=== PATIENT | female | born 1990 | race African-American/Black ===

== ENCOUNTER 2020-11-20 14:18 | Emergency (ER) | payer OTHER, SELFPAY ==
--- NOTE | ~2020-11-20 | XR_ITS ---
EXAMINATION: XR chest 2V EXAM DATE: 11/20/2020 15:12 INDICATION: Cough, chest congestion. History of asthma. TECHNIQUE: Frontal and lateral projections of the chest obtained and reviewed. There is no prior alisa dy for comparison. FINDINGS: There is moderate hyperinflation. The lungs are clear. There are no pleural effusions. Th e cardiomediastinal silhouette is within normal limits. There is no pneumothorax suspected. The bon es and soft tissues are unremarkable. IMPRESSION: 1. No acute cardiopulmonary findings. 2. Hyperinflation. Reviewed, dictated and finalized at location A.
[2020-11-20 14:40] VITALS: BP 130/90; PULSE 94; RESP 20; TEMP 36.9; O2SAT 98
--- NOTE | 2020-11-20 15:07 | ED.GENADULT ---
HPI - General Adult General Chief complaint: Upper Respiratory Infection Stated complaint: coughing stuffy nose Time Seen by Provider: 11/20/20 15:07 Source: patient and RN notes reviewed Mode of arrival: ambulatory Limitations: no limitations History of Present Illness HPI narrative: 30-year-old -French female presents with complaints of upper respiratory infection symptoms, cough, intermittent dyspnea and wheezing for the past 4 days. Tyann reports increasing symptoms over the past 24 hours. Albuterol inhaler without relief. History of Asthma. Intermittent productive cough with chest congestion. Rhinorrhea and nasal congestion. Exacerbating factors consist of smoke exposure. No high fever or sweats. No nausea, vomiting, and abdominal pain. Tolerating p.o. intake well. Denies chest pain, coughing up blood, facial pain, and rash. Denies sick exposures. LMP 11/15/20. The patient reports she have not been diagnosed with COVID-19. The patient reports she is not waiting for the results of a COVID-19 lab test. The patient reports she do not have weakness, myalgia, or fatigue. The patient reports he do not have any loss of smell or taste or diarrhea. Denies recent traveling. Denies concerns for COVID-19 or exposures been home with limited outdoor exposure except for essential household needs, work, and return home. At this time, patient is not suspected of having COVID-19. Some parts of this dictation were generated by voice recognition software and may contain typographical and/or grammatical inaccuracies. Related Data Home Medications Medication Instructions Recorded Confirmed albuterol sulfate 2 puff INHALATION QID PRN 11/20/20 11/20/20 Allergies Allergy/AdvReac Type Severity Reaction Status Date / Time No Known Allergies Allergy Verified 11/20/20 15:09 Review of Systems Review of Systems: Narrative: CONSTITUTIONAL: Denies fever, chills, sweats. EYES: Denies visual changes, redness, discharge. ENT: Complains of rhinorrhea, congestion. Denies sore throat, otalgia. CARDIOVASCULAR: Denies chest pain, palpitations, edema. RESPIRATORY: Complains of intermittent dyspnea, wheezing, productive cough. GASTROINTESTINAL: Denies abdominal pain, nausea, vomiting, diarrhea. GENITOURINARY: Denies dysuria, hematuria, abnormal discharge. SKIN: Denies rash or itching. MUSCULOSKELETAL: Denies acute back pain, joint pain, myalgia. NEUROLOGIC: Denies numbness or focal weakness. PSYCHIATRIC: Denies anxiety or depression. All systems reviewed & are unremarkable except as noted in HPI and below. PMFSH Past Medical History Medical History (Updated 11/28/20 @ 18:06 by JEFF Trevizo) Asthma Surgical History Surgical History (Updated 11/20/20 @ 16:07 by JEFF Trevizo) No significant past surgical history Family History Family History (Updated 11/20/20 @ 16:08 by JEFF Trevizo) Father Ex-smoker Emphysema of lung Mother Diabetes mellitus Social History Social History (Updated 11/20/20 @ 16:13 by JEFF Trevizo) Smoking packs per day: 0.5 Smoking cigarettes per day: 10.0 Years smoked: 18 Smoking pack-years: 9.00 Smoking status: Current every day smoker Tobacco type: cigarettes Second hand tobacco smoke exposure: No Alcohol intake: current Substance use: current Substance use type: marijuana Living arrangements: with family Occupation/Education: occupation Gender identity (if verbalized by the patient): Female Sexual Orientation (if Verbalized by the Patient): Straight or Heterosexual Comments At time of signature, agree with nurse past medical, surgical, social, and family history. There is relevant patient's history pertinent to the presenting complaint, no relevant family history pertinent to the presenting complaint. Exam Narrative: Exam Narrative: GENERAL: This is a well-nourished, well-developed patient, in no apparent distress. Kota
[2020-11-20] MEDS: predniSONE 20 MG TABLET 60 MG PO (15:52)
[2020-11-20] MEDS: IPRATROPIUM BR 0.02% INH SOLN 0.5 MG/2.5 ML VIAL INHALATION (15:53)
[2020-11-20] MEDS: ALBUTEROL SULFATE NEB 2.5 MG/3 ML INH INHALATION (15:59)
[2020-11-20 16:30] VITALS: PULSE 85; RESP 20; O2SAT 98
[2020-11-20 16:40] VITALS: PULSE 85; RESP 20; O2SAT 98
[2020-11-21 15:25] LABS: SARS-CoV-2 RNA PCR Negative
== END 2020-11-20 16:40 | disposition home or self-care (01) ==
PROVIDERS: Emergency Provider Nurse Practitioner Family
DX: J45.901 Unspecified asthma with (acute) exacerbation (principal); R91.8 Other nonspecific abnormal finding of lung field; Z20.822 Contact with and (suspected) exposure to COVID-19; F17.210 Nicotine dependence, cigarettes, uncomplicated
CPT/HCPCS: 71046; 87426; 87804; 99213; C9803; G0463; J7512; U0003; U0005

== ENCOUNTER 2021-03-29 18:22 | Emergency (ER) | payer OTHER, SELFPAY ==
[2021-03-29 18:32] VITALS: BP 126/100; PULSE 90; RESP 16; TEMP 36.9; O2SAT 100
--- NOTE | 2021-03-29 18:56 | ED.URI ---
HPI - URI/Sore Throat General Chief Complaint: Upper Respiratory Infection Stated Complaint: Coughing, shortness of breath, nose drainage Time Seen by Provider: 03/29/21 18:50 Source: patient and RN notes reviewed Mode of arrival: ambulatory Limitations: no limitations History of Present Illness HPI Narrative: 31-year-old female who presents to [facility] accompanied by significant other with complaints of productive cough, wheezing,shortness of breath, and nasal drainage for the past 4 days. Patient has history of asthma and has been using her inhaler and taking DayQuil OTC medications for her symptoms with no improvement. Patient states that she has had some sinus pressure with congestion with some yellowish green drainage, denies any known fevers, chills or sweats.Patient reports that she has been using her inhaler as prescribed but continues to wheeze and feel short of breath, reports daily tobacco abuse.Patient requesting nebulizer machine prescription. MD elicited complaint: cough Pertinent past history: asthma Related Data Home Medications Medication Instructions Recorded Confirmed albuterol sulfate 2 puff INHALATION QID PRN 11/20/20 03/29/21 medroxyprogesterone 150 mg IM ONCE 03/29/21 03/29/21 Allergies Allergy/AdvReac Type Severity Reaction Status Date / Time No Known Allergies Allergy Verified 03/29/21 18:43 Review of Systems Review of Systems: CONSTITUTIONAL: Denies fever, chills, or sweats. EYES: Denies visual changes, redness, or discharge. ENT: positive rhinorrhea, congestion,no present sore throat, or otalgia. CARDIOVASCULAR: Denies chest pain, palpitations, or edema. RESPIRATORY:Positive for cough or dyspnea. GASTROINTESTINAL: Denies abdominal pain, nausea, vomiting, or diarrhea. GENITOURINARY: Denies dysuria or hematuria. SKIN: Denies rash or itching. MUSCULOSKELETAL: Denies back pain, joint pain, or myalgia. NEUROLOGIC: Denies headache, numbness, or weakness. PSYCHIATRIC: Denies anxiety or depression. All systems reviewed & are unremarkable except as noted in HPI and below PMFSH Past Medical History Medical History Asthma Surgical History Surgical History No significant past surgical history Family History Family History Father Ex-smoker Emphysema of lung Mother Diabetes mellitus Social History Social History Smoking packs per day: 0.5 Smoking cigarettes per day: 10.0 Years smoked: 18 Smoking pack-years: 9.00 Smoking status: Current every day smoker Tobacco type: cigarettes Second hand tobacco smoke exposure: No Alcohol intake: current Substance use: current Substance use type: marijuana Gender identity (if verbalized by the patient): Female Comments At time of signature, agree with nursing past medical, surgical, social and family history. There is no relevant family history pertinent to the presenting complaint Exam Narrative: GENERAL: Well-appearing, well-nourished, and in mild acute distress. HEAD: Normocephalic, atraumatic. EYES: PERRLA and EOMI. ENT: Nares red, yellowish rhinorrhea no epistaxis. Mucous membranes moist.TM's normal with good light reflex, throat red with no lesion or tonsil enlargement, post nasal drainage present NECK: Supple.no lymphadenopathy CHEST: Scattered wheezing throughout lung posadas auscultation. No acute respiratory distress, no tachypnea or accessory muscle use noted. HEART: Regular rate and rhythm. No murmur heard. Normal peripheral pulses. ABDOMEN: Soft, nontender, nondistended, normal active bowel sounds. EXTREMITIES: Normal range of motion. No edema. SKIN: Warm, dry, no rash. NEURO: No focal deficits. Alert and oriented x3. Course Vital Signs Vital signs: Vital Signs Temperature 36.9 C 03/29/21 1
[2021-03-29] MEDS: IPRATROPIUM BR 0.02% INH SOLN 0.5 MG/2.5 ML VIAL INHALATION (19:01)
[2021-03-29] MEDS: ALBUTEROL SULFATE NEB 2.5 MG/3 ML INH INHALATION (19:01)
== END 2021-03-29 19:50 | disposition home or self-care (01) ==
PROVIDERS: Emergency Provider Registered Nurse
DX: J45.31 Mild persistent asthma with (acute) exacerbation (principal); Z20.822 Contact with and (suspected) exposure to COVID-19; F17.210 Nicotine dependence, cigarettes, uncomplicated
CPT/HCPCS: 87426; 99213; C9803; G0463

== ENCOUNTER 2021-04-07 09:00 | Emergency (ER) | payer OTHER, SELFPAY ==
--- NOTE | ~2021-04-07 | XR_ITS ---
XR chest 2V DATE: 04/07/2021 09:50 INDICATION: Cough, wheezing and shortness of breath for 9 days TECHNIQUE: 2 views COMPARISON: 11/20/2020 2 view chest FINDINGS: Bilateral hyperinflation. There is mild patchy infiltrate at the lung bases, right greater than left, suggesting bibasilar pneumonia or aspiration pneumonitis. Sinus. No hilar or mediastinal enlargement. No pulmonary contusion or pneumothorax. IMPRESSION: Mild patchy bilateral basilar infiltrates; bibasilar pneumonia versus aspiration pneumoni tis Bilateral hyperinflation Reviewed, dictated and finalized at location A. IMPRESSION: Mild patchy bilateral basilar infiltrates; bibasilar pneumonia vers us aspiration pneumonitis Bilateral hyperinflation
[2021-04-07 09:05] VITALS: BP 112/75; PULSE 118; RESP 18; TEMP 37; O2SAT 98
--- NOTE | 2021-04-07 09:46 | ED.URI ---
HPI - URI/Sore Throat General Chief Complaint: Upper Respiratory Infection Stated Complaint: coughing nausea Time Seen by Provider: 04/07/21 09:30 Source: patient, RN notes reviewed and old records reviewed Mode of arrival: ambulatory Limitations: no limitations History of Present Illness HPI Narrative: 31-year-old female who presents to [facility] with complaints of cough, wheezing, some shortness of breath, and episodic nausea with emesis. Patient reports she is coughed so hard that she has vomited also.Patient seen here on 03/29/2021 with exacerbation of asthma was started on prednisone taper and given duo neb treatment solutions with prescription for nebulizer machine with patient stating no improvement in symptoms, only using DuoNeb treatments once daily. Patient states she has history of tobacco abuse of 1/2 pack/day but has not smoked cigarettes or marijuana since 29 March 2021. PATIENT DENIES ANY KNOWN FEVERS, CHILLS OR SWEATS. MD elicited complaint: cough and other (nausea) Pertinent past history: asthma Related Data Home Medications Medication Instructions Recorded Confirmed albuterol sulfate 2 puff INHALATION QID PRN 11/20/20 04/07/21 medroxyprogesterone 150 mg IM ONCE 03/29/21 04/07/21 Allergies Allergy/AdvReac Type Severity Reaction Status Date / Time No Known Allergies Allergy Verified 04/07/21 09:35 Review of Systems Review of Systems: CONSTITUTIONAL: Denies fever, chills, or sweats. EYES: Denies visual changes, redness, or discharge. ENT: Positive rhinorrhea, congestion, no sore throat, left otalgia. CARDIOVASCULAR: Denies chest pain, palpitations, or edema. RESPIRATORY: Positive cough or dyspnea. GASTROINTESTINAL: Denies abdominal pain, positive nausea, vomiting, no diarrhea. GENITOURINARY: Denies dysuria or hematuria. SKIN: Denies rash or itching. MUSCULOSKELETAL: Denies back pain, joint pain, or myalgia. NEUROLOGIC: Denies headache, numbness, or weakness. PSYCHIATRIC: Denies anxiety or depression. All systems reviewed & are unremarkable except as noted in HPI and below PMFSH Past Medical History Medical History Asthma Surgical History Surgical History No significant past surgical history Family History Family History Father Ex-smoker Emphysema of lung Mother Diabetes mellitus Social History Social History (Updated 04/11/21 @ 13:51 by Denice Mahajan NP) Smoking packs per day: 0.5 Smoking cigarettes per day: 10.0 Years smoked: 18 Smoking pack-years: 9.00 Smoking status: Current every day smoker Tobacco type: cigarettes Second hand tobacco smoke exposure: No Alcohol intake: current Alcohol use details: no tobacco since 03/29/2021 Substance use: current Substance use type: marijuana Last use: none since 03/29/2021 Living arrangements: with family Gender identity (if verbalized by the patient): Female Comments At time of signature, agree with nursing past medical, surgical, social and family history. There is no relevant family history pertinent to the presenting complaint Exam Narrative: GENERAL: Ill-appearing, well-nourished, and in no acute distress. HEAD: Normocephalic, atraumatic. EYES: PERRLA and EOMI. ENT: Nares with light yellow rhinorrhea no epistaxis. Mucous membranes moist. TMs normal with good light reflex, throat red with no lesions or exudates no tonsillar swelling postnasal drainage noted. NECK: Supple. No lymphadenopathy CHEST: Scattered wheezing with rhonchi to the bases on auscultation. No acute respiratory distress, is dyspneic with minimal exertion No tachypnea, productive cough yellowish mucous HEART: Regular rate and rhythm. No murmur heard. Normal peripheral pulses. ABDOMEN: Soft, nontender, nondistended, normal active bowel sounds. Episodic nausea with vomiting. EXTR
== END 2021-04-07 10:20 | disposition home or self-care (01) ==
PROVIDERS: Emergency Provider Registered Nurse; PCP Internal Medicine
DX: J18.9 Pneumonia, unspecified organism (principal); J45.41 Moderate persistent asthma with (acute) exacerbation; F17.210 Nicotine dependence, cigarettes, uncomplicated
CPT/HCPCS: 71046; 87426; 99213; C9803; G0463

== ENCOUNTER 2022-07-21 08:57 | Emergency (ER) | payer OTHER, SELFPAY ==
[2022-07-21 09:02] VITALS: BP 124/64; PULSE 74; RESP 16; TEMP 36.4; O2SAT 100
--- NOTE | 2022-07-21 09:03 | ED.DENTAL ---
HPI - Dental/Oral General Chief complaint: Skin/Abscess/Foreign Body Stated complaint: Mouth Sore Time Seen by Provider: 07/21/22 09:03 Source: patient Mode of arrival: ambulatory Limitations: no limitations History of Present Illness HPI Narrative: Ms. Rubalcava is a 32-year-old female patient presenting to the clinic today with complaints of a sore in her mouth times 1-2 weeks. She reports she has dentures however she has had the denture for some time now and has not had any problems Related Data Home Medications Medication Instructions Recorded Confirmed albuterol sulfate 90 mcg/actuation 2 puff inhalation QID PRN 11/20/20 07/21/22 aerosol inhaler Shortness Of Breath Allergies Allergy/AdvReac Type Severity Reaction Status Date / Time No Known Allergies Allergy Verified 07/21/22 09:11 Review of Systems Review of Systems: Pertinent positives per HPI. Patient denies any fever, chills, rash, headache, visual changes, dizziness, cough, runny nose, sore throat, shortness of breath, chest pain, palpitations, nausea, vomiting, diarrhea, constipation, abdominal pain, or any urinary issues. [facility] Past Medical History Medical History Asthma Surgical History Surgical History No significant past surgical history Family History Family History Father Ex-smoker Emphysema of lung Mother Diabetes mellitus Social History Social History Smoking packs per day: 0.5 Smoking cigarettes per day: 10.0 Years smoked: 18 Smoking pack-years: 9.00 Smoking status: Current every day smoker Tobacco type: cigarettes Second hand tobacco smoke exposure: No Alcohol intake: current Alcohol use details: no tobacco since 03/29/2021 Substance use: current Substance use type: marijuana Last use: none since 03/29/2021 Gender identity (if verbalized by the patient): Female Sexual Orientation (if Verbalized by the Patient): Straight or Heterosexual Comments At the time of my signature, I reviewed and agree with the nursing past medical, surgical, social, and family history. There is no relevant family history pertinent to the patient complaint. Exam Narrative: General: Well-developed, well nourished, in no apparent distress Head: Normocephalic, atraumatic Eyes: Pupils equally round and reactive to light bilaterally, EOM intact, sclera and conjunctive clear, no discharge, lids normal Ears: TMs intact and clear, ear canals clear, no drainage, grossly hearing normal. Nose: Nares patent, no discharge, no inflammation, no sinus tenderness. Mouth: Oropharynx without lesions or masses, good dentition, MMM. gingival ulceration/ infection to the right upper gingiva, tender to palpation, redness and swelling noted, no abscess palpable Neck: Supple, trachea midline, no enlargement of anterior or posterior cervical nodes, no thyroid masses or goiter palpable. Cardio: Regular rate and rhythm, s1 and s2 normal, no murmur appreciated. Resp: Clear to auscultation bilaterally anteriorly and posteriorly, no rhonchi, rales, wheezing or rubs Course Course Emergency Course: Portions of this record may have been created with voice recognition software. Level of Care: Express Care Visit Vital Signs Vital signs: Vital signs reviewed MDM - Dental/Oral MDM Narrative Medical decision making narrative: At the time of visit patient is resting comfortably on exam table. I suspect that she has a gingival ulcer/infection. Prescription for amoxicillin and triamcinolone topical dental paste was prescribed. Supportive measures were discussed with the patient and she voiced understanding of discharge instructions and agrees to the treatment plan. Differential Diagnosis Differential courtney
== END 2022-07-21 09:16 | disposition home or self-care (01) ==
PROVIDERS: Emergency Provider Nurse Practitioner Family
DX: K06.8 Other specified disorders of gingiva and edentulous alveolar ridge (principal); J45.909 Unspecified asthma, uncomplicated; F17.210 Nicotine dependence, cigarettes, uncomplicated
CPT/HCPCS: 99213; G0463

== ENCOUNTER 2022-11-23 09:03 | Emergency (ER) | payer OTHER, SELFPAY ==
[2022-11-23 09:08] VITALS: BP 136/91; PULSE 89; RESP 14; TEMP 37.1; O2SAT 100
--- NOTE | 2022-11-23 09:09 | ED.DENTAL ---
HPI - Dental/Oral General Chief complaint: Dental/Oral Stated complaint: Right side of gums swelling Time Seen by Provider: 11/23/22 09:10 Source: patient and RN notes reviewed History of Present Illness HPI Narrative: Patient is a 32-year-old female who presents to urgent care with complaints of right upper gum pain. Patient states that she has been to her dentist and does have a plan with [facility] to have some dental procedures completed. Patient has been on penicillin for approximately 3 weeks and just finished the medication 2 days ago. Patient states her dentures are still rubbing on the right upper gums and causing some swelling. Patient's dentist is aware of the issue. Denies any fever, nausea or vomiting. No other acute complaints. No acute distress noted. Patient aware of the plan of care. Some parts of this dictation were generated by voice recognition software and may contain typographical and/or grammatical inaccuracies. Related Data Allergies Allergy/AdvReac Type Severity Reaction Status Date / Time No Known Allergies Allergy Verified 11/23/22 09:14 Review of Systems Review of Systems: CONSTITUTIONAL: Denies fever, chills, or sweats. EYES: Denies visual changes, redness, or discharge. ENT: Denies rhinorrhea, congestion, sore throat, or otalgia. CARDIOVASCULAR: Denies chest pain, palpitations, or edema. RESPIRATORY: Denies cough or dyspnea. GASTROINTESTINAL: Denies abdominal pain, nausea, vomiting, or diarrhea. GENITOURINARY: Denies dysuria or hematuria. SKIN: Denies rash or itching. MUSCULOSKELETAL: Denies back pain, joint pain, or myalgia. NEUROLOGIC: Denies headache, numbness, or weakness. PSYCHIATRIC: Denies anxiety or depression. All other systems reviewed are negative, except as documented in HPI. [facility] Past Medical History Medical History Asthma Surgical History Surgical History No significant past surgical history Family History Family History Father Ex-smoker Emphysema of lung Mother Diabetes mellitus Social History Social History Smoking packs per day: 0.5 Smoking cigarettes per day: 10.0 Years smoked: 18 Smoking pack-years: 9.00 Smoking status: Current every day smoker Tobacco type: cigarettes Second hand tobacco smoke exposure: No Alcohol intake: current Alcohol use details: no tobacco since 03/29/2021 Substance use: current Substance use type: marijuana Last use: none since 03/29/2021 Living arrangements: with family Occupation/Education: occupation Gender identity (if verbalized by the patient): Female Sexual Orientation (if Verbalized by the Patient): Straight or Heterosexual Comments At the time of my signature, I reviewed and agree with the nursing past medical, surgical, social, and family history. There is no relevant family history pertinent to the patient complaint. Exam Narrative: GENERAL: This is a well-nourished, well-developed patient, in no apparent distress. HEAD: normocephalic, atraumatic. EYES: PERRL. Sclera clear/white. Vision is grossly intact. EARS: External ears normal NOSE: External nose normal with no obvious nasal discharge, nares without redness, no rhinorrhea. THROAT: Mucous membranes moist, posterior pharynx clear. DENTAL: Unable to evaluate gingiva due to sealed dentures the patient did not wish to remove, no obvious swelling or erythema noted to the scene gingival of the right upper quadrant. NECK: Neck supple SKIN: warm, intact with no suspicious lesions or rash, good texture and turgor. NEURO: awake, alert, and oriented to person, place and time. There were no obvious focal neurologic abnormalities. EXTREMITIES: No clubbing, cyanosis, or edema. Course Course Level of Care
== END 2022-11-23 09:32 | disposition home or self-care (01) ==
PROVIDERS: Emergency Provider Nurse Practitioner Family
DX: K13.79 Other lesions of oral mucosa (principal); F17.210 Nicotine dependence, cigarettes, uncomplicated; J45.909 Unspecified asthma, uncomplicated
CPT/HCPCS: 99213; G0463

== ENCOUNTER 2023-02-21 11:37 | Emergency (ER) | payer OTHER, SELFPAY ==
[2023-02-21 11:47] VITALS: BP 120/71; PULSE 78; RESP 18; TEMP 36.7; O2SAT 100
--- NOTE | 2023-02-21 12:10 | ED.ABDPAIN ---
HPI - Abdominal Pain General Chief Complaint: Abdominal Pain Stated Complaint: /nausea and cramping Time Seen by Provider: 02/21/23 12:10 Source: patient Mode of arrival: ambulatory Limitations: no limitations History of Present Illness HPI narrative: 33-year-old female presents with complaint of left-sided lower abdominal pain starting last night. Patient reports that she is approximately 10 weeks . Has not seen her OBGYN yet for appointment. And an ultrasound at a clinic called [facility] and was told that she is with twins. Denies vaginal bleeding. No urinary symptoms. Reports nausea, no vomiting. Also reports constipation. All systems reviewed and negative except as noted above. Related Data Allergies Allergy/AdvReac Type Severity Reaction Status Date / Time No Known Allergies Allergy Verified 11/23/22 09:14 Review of Systems Review of Systems: CONSTITUTIONAL: Denies fever, chills, or sweats. EYES: Denies visual changes, redness, or discharge. ENT: Denies rhinorrhea, congestion, sore throat, or otalgia. CARDIOVASCULAR: Denies chest pain, palpitations, or edema. RESPIRATORY: Denies cough or dyspnea. GASTROINTESTINAL: Reports left lower abdominal pain, nausea, constipation. Denies vomiting. GENITOURINARY: Denies dysuria or hematuria. Denies vaginal bleeding. SKIN: Denies rash or itching. MUSCULOSKELETAL: Denies back pain, joint pain, or myalgia. NEUROLOGIC: Denies headache, numbness, or weakness. PSYCHIATRIC: Denies anxiety or depression. All other systems reviewed are negative, except as documented in HPI. [facility] Past Medical History Medical History Asthma Surgical History Surgical History No significant past surgical history Family History Family History Father Ex-smoker Emphysema of lung Mother Diabetes mellitus Social History Social History Smoking packs per day: 0.5 Smoking cigarettes per day: 10.0 Years smoked: 18 Smoking pack-years: 9.00 Smoking status: Current every day smoker Tobacco type: cigarettes Second hand tobacco smoke exposure: No Alcohol intake: current Alcohol use details: no tobacco since 03/29/2021 Substance use: current Substance use type: marijuana Last use: none since 03/29/2021 Living arrangements: with family Occupation/Education: occupation Gender identity (if verbalized by the patient): Female Sexual Orientation (if Verbalized by the Patient): Straight or Heterosexual Comments Reviewed Exam Narrative: GENERAL: This is a well-nourished, well-developed patient, in no apparent distress. HEAD: normocephalic, atraumatic. EYES: PERRL. Sclera clear/white. Vision is grossly intact. EARS: External ears normal NOSE: External nose normal THROAT: Mucous membranes moist, posterior pharynx clear. NECK: Neck supple, non-tender without lymphadenopathy, masses or thyromegaly. CARDIOVASCULAR: Regular rate and rhythm without murmurs, gallops, or rubs. RESPIRATORY: Clear to auscultation. Breath sounds equal bilaterally. No wheezes, rales, or rhonchi. GASTROINTESTINAL: Bowel sounds are active. No hepato-splenomegaly, or palpable masses. No guarding. SKIN: warm, Dry, intact with no suspicious lesions or rash, good texture and turgor. NEURO: awake, alert, and oriented to person, place and time. There were no obvious focal neurologic abnormalities. EXTREMITIES: No joint tenderness, effusion, or edema noted. Course Course Level of Care: Express Care Visit Vital Signs Vital signs: Vital Signs Temperature 36.7 C 02/21/23 11:47 Pulse Rate 78 02/21/23 11:47 Respiratory Rate 18 02/21/23 11:47 Blood Pressure 120/71 02/21/23 11:47 Pulse Oximetry 100 02/21/23 11:47
--- NOTE | 2023-02-21 16:56 | PC.NURSE ---
PT TO FOLLOW UP AT [facility] SO URINE CULTURE CANCELED DUE TO DUPLICATE ORDER
== END 2023-02-21 12:25 | disposition short-term general hospital (02) ==
PROVIDERS: Emergency Provider Nurse Practitioner Family; PCP Family Medicine
DX: O26.891 Other specified pregnancy related conditions, first trimester (principal); O99.891 Other specified diseases and conditions complicating pregnancy; Z3A.10 10 weeks gestation of pregnancy; R82.4 Acetonuria; O99.331 Smoking (tobacco) complicating pregnancy, first trimester; F17.210 Nicotine dependence, cigarettes, uncomplicated
CPT/HCPCS: 81003; 81025; 87086; 99213; G0463

== ENCOUNTER 2023-02-21 13:26 | Emergency (ER) | payer OTHER, SELFPAY ==
--- NOTE | ~2023-02-21 | US_ITS ---
EXAMINATION: US OB <= 14 weeks fetus INDICATION: Left sided pelvic pain in , 10 wks. . LMP 12/12/2022. CARL by LMP 09/18/2023. TECHNIQUE: Sonography of the pelvis was performed by transabdominal and transvaginal techniques. COMPARISON: None. RESULT: Uterus: Orientation: Anteverted. 13.2 x 10.5 x 8.5 cm. Myometrium: 4.6 cm intramural right uterine f ibroid. Intrauterine gestational sac: Multiple present. Embryo: Multiple present. Baby A (located in the left side of the uterus): A normal-appearing yolk sac is present. [place] rump l ength: 3.2 cm, corresponding gestational age 10 weeks, 1 days. Gestational heart rate: present 178 bpm. Baby B (located in the right side of the uterus): A normal-appearing yolk sac is present. [place] rump length: 3.7 cm, corresponding gestational age 10 weeks, 4 days, +/- 1 week 0 day. Gestational heart rate: present 178 bpm. Subgestational hematoma: Absent. Right ovary: Not visualized. Left ovary: 3.3 x 2.9 x 3.0 cm. 2.0 cm minimally lobulated, mostly hyperechoic left ovarian nodule with small foci of internal heterogeneous echogenicity, no shadowing, no vascular flow. 1.4 cm simpl e cyst or dominant follicle. Vascular flow is present. Pelvis free fluid: None. IMPRESSION: Twin, live intrauterine gestations. Estimated Gestational Age: Baby A: 10 weeks, 1 days by crown rump length. CARL by ultrasound 09/18/2023. Baby B: 10 weeks, 4 days by crown-rump length. CARL by ultrasound 09/15/2023. 4.6 cm intramural right uterine fibroid. 2.0 cm hyperechoic left ovarian nodule, may represent a hemorrhagic cyst or dermoid. Right ovary not visualized. Reviewed, dictated and finalized at location K. IMPRESSION: Twin, live intrauterine gestations. Estimated Gestational Age: Baby A: 10 weeks, 1 days by crown rump length. CARL by ultrasound 09/18/2023. Baby B: 10 weeks, 4 days by crown-rump length. CARL by ultrasound 09/15/2023. 4.6 cm intramural right uterine fibroid. 2.0 cm hyperechoic left ovarian nodule, may represent a hemorrhagic cyst or arnel moid. Right ovary not visualized.
[2023-02-21 13:27] VITALS: BP 118/60; PULSE 89; RESP 16; TEMP 37.1; O2SAT 100
[2023-02-21 14:05] LABS: Basophils Percent Auto 0.4 % (0.2-1.2); Eosinophils Percent Auto 0.4 % (0-4.4); Hematocrit 35.4 % (37.0-47.0); Hemoglobin 12.2 g/dL (12.0-15.0); Immature Granulocyte Absolute 0.06 K/mm3 (0.00-0.031); Immature Granulocyte Percent A 0.8 % (0-0.5); Lymphocytes Absolute Auto 0.99 K/mm3 (0.9-3.2); Lymphocytes Percent Auto 13.2 % (18.3-44.2); Mean Corpuscular HGB Conc 34.5 g/dl (32-36); Mean Corpuscular Hemoglobin 28.6 pg (26-34); Mean Corpuscular Volume 82.9 fl (80-100); Mean Platelet Volume 9.5 fl (7.4-10.4); Monocytes Absolute Auto 0.4 K/mm3 (0.1-0.6); Monocytes Percent Auto 5.6 % (2.6-8.5); Neutrophils Percent Auto 79.6 % (45.5-73.1); Platelet Count Result 248 k/mm3 (150-375); Red Blood Count 4.27 M/mm3 (4.2-5.4); Red Cell Distribution Width 13.5 % (11.5-14.5); White Blood Count 7.5 K/mm3 (4.5-10.0)
[2023-02-21 14:06] LABS: Appearance Urine Cloudy (Clear); Bacteria Urine Rare /hpf; Bilirubin Urine Negative (Negative); Blood Urine Negative (Negative); Color Urine Yellow (Yellow); Glucose Urine UA Negative (Negative); Ketones Urine 4+ mg/dL (Negative); Leukocyte Esterase Ur 2+ LEU/UL (Negative); Nitrate Urine Negative (Negative); Non Pathogenic Casts 0-2; Protein Urine Trace mg/dL (Negative); RBC Urine 0-2 /hpf (0-2); Specific Grav Ur 1.022 (1.001-1.035); Squamous Epithelial Cell Urine Moderate /hpf (Few); WBC Urine 21-50 /hpf; pH Urine 5.5 (5.0-9.0)
--- NOTE | 2023-02-21 14:10 | ED.ABDPAIN ---
HPI - Abdominal Pain General Chief Complaint: Abdominal Pain Stated Complaint: abdominal pain Time Seen by Provider: 02/21/23 13:44 History of Present Illness HPI narrative: Patient is a 33-year-old G3, P2 female who is currently about 10 weeks with twins here for evaluation of left-sided abdominal pain x2 days. Patient describes the sensation as a cramping. She also reports constipation x2 days and some urinary frequency. She was unsure what she could take for her symptoms in so she went to an urgent care who referred her here for ultrasound and labs. Her urine showed ketones and leukocytes. Patient denies any vaginal bleeding, vomiting. Her OB is at [facility] care she has not yet had her first appointment, she had an ultrasound at a walk-in clinic that showed twin gestations. Related Data Allergies Allergy/AdvReac Type Severity Reaction Status Date / Time No Known Allergies Allergy Verified 11/23/22 09:14 Review of Systems Review of Systems: Gen.: Denies fevers or chills Eyes: Denies eye pain or visual change ENT: Denies congestion Respiratory: Denies shortness of breath or cough CV: Denies chest pain or palpitations GI: Reports abdominal pain and nausea : denies burning, urgency, frequency or hematuria Musculoskeletal: Denies back pain or muscle pain Neuro: Denies numbness, tingling, weakness or focal weakness Skin: Denies rash Except as documented, all other systems reviewed and negative [facility] Past Medical History Medical History Asthma Surgical History Surgical History No significant past surgical history Family History Family History Father Ex-smoker Emphysema of lung Mother Diabetes mellitus Social History Social History Smoking packs per day: 0.5 Smoking cigarettes per day: 10.0 Years smoked: 18 Smoking pack-years: 9.00 Smoking status: Current every day smoker Tobacco type: cigarettes Second hand tobacco smoke exposure: No Alcohol intake: current Alcohol use details: no tobacco since 03/29/2021 Substance use: current Substance use type: marijuana Last use: none since 03/29/2021 Living arrangements: with family Occupation/Education: occupation Gender identity (if verbalized by the patient): Female Sexual Orientation (if Verbalized by the Patient): Straight or Heterosexual Exam Narrative: APPEARANCE: Well appearing, no pain in distress, well-nourished. Head: Normocephalic and atraumatic. EYES: PERRLA/EOMI, conjunctivae clear NOSE: No nasal drainage EARS: External ear normal in appearance THROAT: Oropharynx is clear. Mucous membranes are moist. NECK: Supple. No adenopathy, no masses. RESPIRATORY: Airway patent, respirations nonlabored. Clear to auscultation bilaterally, no rales, rhonchi, wheezing. CARDIOVASCULAR: Regular rate and rhythm without murmurs, rubs, or gallops. ABDOMINAL: Normoactive bowel sounds. Soft, nontender, nondistended. No rebound tenderness or guarding. MUSCULOSKELETAL: Extremities are warm and well-perfused. Moves all extremities well. No edema. NEURO: Normal speech. No focal neurologic deficits. SKIN: Skin is warm and dry. No rashes. PSYCHIATRIC: Normal affect/mood.. Course Vital Signs Vital signs: Vital Signs Temperature 98.7 F 02/21/23 13:27 Pulse Rate 89 02/21/23 13:27 Respiratory Rate 16 02/21/23 13:27 Blood Pressure 118/60 02/21/23 13:27 Pulse Oximetry 100 02/21/23 13:27 Oxygen Delivery Room Air 02/21/23 13:27 Temperature 98.7 F 02/21/23 13:27 Pulse Rate 80 02/21/23 16:40 Respiratory Rate 16 02/21/23 16:40 Blood Pressure 104/67 02/21/23 16:40 Pulse Oximetry 100 02/21/23 16:40 Oxygen Delivery Room Air 02/21/23 13
[2023-02-21 14:21] LABS: Alanine Aminotransferase 18 U/L (6-35); Albumin Level 4.2 g/dL (3.5-5.1); Alkaline Phosphatase 49 U/L (38-126); Anion Gap 10 mmol/L (8-16); Aspartate Amino Transferase 30 U/L (14-36); Bilirubin,Total 0.5 mg/dL (0.2-1.3); Blood Urea Nitrogen 8 mg/dL (7-17); Carbon Dioxide 22 mmol/L (22-30); Chloride 101 mmol/L (98-107); Estimated CRCL calculation 88 ml/min; Estimated Glomerular Filt Rate > 60; Glucose 70 mg/dL (65-110); Lipase 58 U/L (23-300); Potassium 3.5 mmol/L (3.4-5.0); Sodium 133 mmol/L (137-145)
[2023-02-21] MEDS: LACTATED RINGERS 1,000 ML 999 ML IV CONT (14:39)
[2023-02-21 14:49] LABS: Add Urine Microscopic? YES
[2023-02-21 15:36] LABS: Beta HCG Quantitative > 300000.00 mIU/ML
[2023-02-21 16:40] VITALS: BP 104/67; PULSE 80; RESP 16; O2SAT 100
== END 2023-02-21 16:40 | disposition home or self-care (01) ==
PROVIDERS: Emergency Provider Physician Assistant; PCP Family Medicine
DX: O23.41 Unspecified infection of urinary tract in pregnancy, first trimester (principal); N39.0 Urinary tract infection, site not specified; O26.891 Other specified pregnancy related conditions, first trimester; R10.9 Unspecified abdominal pain; O99.331 Smoking (tobacco) complicating pregnancy, first trimester; F17.210 Nicotine dependence, cigarettes, uncomplicated; Z3A.10 10 weeks gestation of pregnancy
CPT/HCPCS: 36415; 76801; 80053; 81001; 81003; 81025; 83690; 84702; 85025; 87086; 96360; 99284; J7120

== ENCOUNTER 2024-06-23 18:10 | Emergency (ER) | payer OTHER, SELFPAY | END 2024-06-23 18:25 | disposition left against medical advice (07) | LOC: EXPBETH 18:12 | PROVIDERS: Emergency Provider Registered Nurse; PCP Family Medicine | DX: Z53.21 Procedure and treatment not carried out due to patient leaving prior to being seen by health care provider (principal) | CPT/HCPCS: 99199 ==